=== PATIENT | female | born 1955 | race Asian ===

== ENCOUNTER 2019-03-27 10:05 | Emergency (ER) | payer MEDICARE ==
[~2019-03-27] VITALS: Ht 152.4 cm; Wt 50.0 kg
[2019-03-27] MEDS ORDERED: DIPH25 PO (10:14)
[2019-03-27] MEDS ORDERED: MethylPREDNISolone SOD SUCC 125 MG/2 ML VIAL IVP ONE (10:45)
[2019-03-27] MEDS ORDERED: DiphenhydrAMINE HCL 50 MG/ML VIAL IVP ONE (10:45)
[2019-03-27 12:10] VITALS: BP 136/77
== END 2019-03-27 12:31 | disposition home or self-care (01) ==
LOC: EMS 10:07
DX: L50.9 Urticaria, unspecified (principal)
CPT/HCPCS: 96374; 96375; 99283; J1200; J2930